=== PATIENT | female | born 1945 | race Caucasian/White ===

== ENCOUNTER 2017-09-10 08:17 | Outpatient (CLI) | payer OTHER ==
[~2017-09-10 08:17] MED LIST: AMOX1TAB5 PO; TRAMADOL HCL-AP1 TAB PO
== END 2017-09-10 12:13 | disposition home or self-care (01) ==
LOC: RAD 08:17
DX: M12.822 Other specific arthropathies, not elsewhere classified, left elbow (principal); M19.022 Primary osteoarthritis, left elbow

== ENCOUNTER 2017-09-10 08:25 | Outpatient (CLI) | payer OTHER | END 2017-09-10 12:13 | disposition home or self-care (01) | LOC: SONOGRAMA 08:25 | DX: M12.822 Other specific arthropathies, not elsewhere classified, left elbow (principal); M19.022 Primary osteoarthritis, left elbow ==

== ENCOUNTER 2018-01-09 08:30 | Outpatient (CLI) | payer OTHER | END 2018-01-09 15:36 | disposition home or self-care (01) | LOC: NUCLEAR 08:30 | DX: R07.9 Chest pain, unspecified (principal); I10 Essential (primary) hypertension ==

== ENCOUNTER 2019-07-17 17:26 | Emergency (ER) | payer OTHER ==
[~2019-07-17] VITALS: Ht 154.9 cm; Wt 81.6 kg
[2019-07-17] MEDS ORDERED: CYMBALTA20 MG (17:33)
[2019-07-17] MEDS ORDERED: GLIMEPIRIDE2 MG (17:34)
[2019-07-17] MEDS ORDERED: GRALISE600 MG (17:34)
[2019-07-17] MEDS ORDERED: LOSARTAN-HCTZ1 EAC1 (17:34)
[2019-07-17] MEDS ORDERED: ETODOLAC200 MG (17:35)
[2019-07-17] MEDS ORDERED: SYNTHROID50 MCG (17:37)
[2019-07-17] MEDS ORDERED: DICLOFENAC SODI75 MG PO (18:02)
== END 2019-07-17 19:17 | disposition home or self-care (01) ==
LOC: ER 17:26
DX: S90.32XA Contusion of left foot, initial encounter (principal); M12.572 Traumatic arthropathy, left ankle and foot; W18.39XA Other fall on same level, initial encounter; Y93.89 Activity, other specified; Y92.480 Sidewalk as the place of occurrence of the external cause; Y99.8 Other external cause status

== ENCOUNTER 2019-08-13 07:50 | Outpatient (CLI) | payer OTHER ==
[~2019-08-13 07:50] MED LIST changes: +CYMBALTA20 MG; +DICLOFENAC SODI75 MG PO; +ETODOLAC200 MG; +GLIMEPIRIDE2 MG; +GRALISE600 MG; +LOSARTAN-HCTZ1 EAC1; +SYNTHROID50 MCG
== END 2019-08-13 08:04 | disposition home or self-care (01) ==
LOC: RAD 07:50
DX: G43.909 Migraine, unspecified, not intractable, without status migrainosus (principal); J44.9 Chronic obstructive pulmonary disease, unspecified

== ENCOUNTER 2020-03-29 09:23 | Outpatient (CLI) | payer OTHER | END 2020-03-29 09:29 | disposition home or self-care (01) | LOC: RAD 09:23 | PROVIDERS: ATTEND Internal Medicine Cardiovascular Disease | DX: M12.88 Other specific arthropathies, not elsewhere classified, other specified site (principal); M12.851 Other specific arthropathies, not elsewhere classified, right hip; M12.852 Other specific arthropathies, not elsewhere classified, left hip; M46.47 Discitis, unspecified, lumbosacral region ==

== ENCOUNTER 2021-03-06 16:19 | Emergency (ER) | payer OTHER ==
[~2021-03-06] VITALS: Ht 160 cm; Wt 70.3 kg
[2021-03-07] MEDS ORDERED: PEPCID AC20 MG PO (00:59)
[2021-03-07] MEDS ORDERED: CIPRO500 MG PO (00:59)
== END 2021-03-07 01:56 | disposition home or self-care (01) ==
LOC: ER 16:19
DX: K52.9 Noninfective gastroenteritis and colitis, unspecified (principal); Z03.818 Encounter for observation for suspected exposure to other biological agents ruled out; R11.2 Nausea with vomiting, unspecified; R19.7 Diarrhea, unspecified

== ENCOUNTER → 2022-10-23 09:22 | Outpatient (CLI) | payer OTHER ==
[~2022-10-23 09:22] MED LIST changes: +CIPRO500 MG PO; +PEPCID AC20 MG PO
== END | disposition home or self-care (01) ==
LOC: LAB 09:22
PROVIDERS: ATTEND Internal Medicine Cardiovascular Disease
DX: E03.9 Hypothyroidism, unspecified (principal); I10 Essential (primary) hypertension; E11.9 Type 2 diabetes mellitus without complications; E78.2 Mixed hyperlipidemia; Z12.11 Encounter for screening for malignant neoplasm of colon; E55.9 Vitamin D deficiency, unspecified

== ENCOUNTER → 2022-10-24 13:51 | Outpatient (CLI) | payer OTHER | END | disposition home or self-care (01) | LOC: LAB 13:51 | PROVIDERS: ATTEND Internal Medicine Cardiovascular Disease | DX: Z12.11 Encounter for screening for malignant neoplasm of colon (principal) ==

== ENCOUNTER 2025-04-15 10:15 | Outpatient (CLI) | payer OTHER | END 2025-04-15 10:27 | disposition home or self-care (01) | LOC: MRI 10:15 | PROVIDERS: ATTEND Psychiatry & Neurology Clinical Neurophysiology | DX: G11.2 Late-onset cerebellar ataxia (principal); G95.20 Unspecified cord compression | CPT/HCPCS: 70551; 72141 ==

== ENCOUNTER → 2025-07-27 | Outpatient (CLI) | payer OTHER | END | disposition home or self-care (01) | LOC: NUCLEAR 09:47 | PROVIDERS: ATTEND Internal Medicine Cardiovascular Disease | DX: R41.2 Retrograde amnesia (principal) | CPT/HCPCS: 78803; A9557 ==